=== PATIENT | female | born 1985 | race Caucasian/White ===

== ENCOUNTER 2017-03-03 18:35 | Emergency (ER) | payer OTHER ==
[2017-03-03 18:56] VITALS: BP 127/81; PULSE 78; RESP 16; TEMP 98.6; O2SAT 97
[2017-03-03] MEDS ORDERED: HYDROCODONE/APAP 5/325 TAB PO ONE (18:57)
--- NOTE | 2017-03-03 18:59 | UCPHY ---
H & P Patient Type: Established Chief Complaint Nursing Narrative: Pt. states punched tile wall aprox 1430 today. Hand swelling and numbness/tingling marko to 3rd digit. Time Seen by Provider: 03/03/17 18:54 HPI/ROS: CHIEF COMPLAINT: Right hand pain HISTORY OF PRESENT ILLNESS: Patient is a 31-year-old female who punched a tight wall at home just prior to arrival. She has swelling and pain over her 3rd MCP joint. Normal range of motion and sensation and capillary refill. She denies other injuries. REVIEW OF SYSTEMS: Constitutional: denies: chills, fever, recent illness, recent injury EENTM: denies: blurred vision, double vision, nose congestion Respiratory: denies: cough, shortness of breath Cardiac: denies: chest pain, irregular heart rate, lightheadedness, palpitations Gastrointestinal/Abdominal: denies: abdominal pain, diarrhea, nausea, vomiting, blood streaked stools Genitourinary: denies: dysuria, frequency, hematuria, pain Musculoskeletal: See HPI Skin: denies: lesions, rash, jaundice, bruising Neurological: denies: headache, numbness, paresthesia, tingling, dizziness, weakness Hematologic/Lymphatic: denies: blood clots, easy bleeding, easy bruising Immunologic/allergic: denies: HIV/AIDS, transplant EXAM: GENERAL: Well-appearing, well-nourished and in no acute distress. HEAD: Atraumatic, normocephalic. EYES: Pupils equal round and reactive to light, extraocular movements intact, sclera anicteric, conjunctiva are normal. ENT: TMs normal, nares patent, oropharynx clear without exudates. Moist mucous membranes. NECK: Normal range of motion, supple without lymphadenopathy or JVD. LUNGS: Breath sounds clear to auscultation bilaterally and equal. No wheezes rales or rhonchi. HEART: Regular rate and rhythm without murmurs, rubs or gallops. ABDOMEN: Soft, nontender, normoactive bowel sounds. No guarding, no rebound. No masses appreciated. BACK: No CVA tenderness, no spinal tenderness, step-offs or deformities EXTREMITIES: see HPI NEUROLOGICAL: Cranial nerves II through XII grossly intact. Normal speech, normal gait. 5/5 strength, normal movement in all extremities, normal sensation PSYCH: Normal mood, normal affect. SKIN: Warm, dry, normal turgor, no visible rashes or lesions. Source: Patient Exam Limitations: No limitations - Personal History LMP (Females 10-55): 8-14 Days Ago Current Tetanus Diphtheria and Acellular Pertussis (TDAP): Yes - Medical/Surgical History Hx Asthma: No Hx Chronic Respiratory Disease: No Hx Diabetes: No Hx Cardiac Disease: No Hx Renal Disease: No Hx Cirrhosis: No Hx Alcoholism: No Hx HIV/AIDS: No Hx Splenectomy or Spleen Trauma: No Other PMH: Med hx-none. Surg-oral - Family History Significant Family History: No pertinent family hx - Social History Smoking Status: Never smoked Alcohol Use: Sober Drug Use: None Constitutional: Initial Vital Signs Temperature (C) 37.0 C 03/03/17 18:43 Heart Rate 78 03/03/17 18:43 Respiratory Rate 16 03/03/17 18:43 Blood Pressure 127/81 H 03/03/17 18:43 O2 Sat (%) 97 03/03/17 18:43 O2 Delivery Mode Room Air Allergies/Adverse Reactions: No Known Allergies Allergy (Verified 03/03/17 18:51) Home Medications: Medication Instructions Recorded Bcp 03/03/17 Hydrocodone/APAP 5/325 [Fields 1 - 2 tab PO Q4H PRN #7 tab 03/03/17 5/325 (RX)] Medical Decision Making - Diagnostics Imaging Results: Imaging Impressions Hand X-Ray 03/03/17 18:57 Impression: Negative for fracture. X-ray: Hand x-ray was obtained. I viewed the images myself on the PACS system. My interpretation of the images is: [negative for acute disease ]. The radiologist interpretation is negative. ED Course/Re-evaluation: The patient is reassured by her x-rays. We discussed treatment of bruising and swelling including elevation, ice and compression. She is happy with this and declines further workup or testing at this time. Differential Diagnosis: Partial list of the Differential diagnosis considered include but were not limited to; contusion, fracture and although unlikely based on the history and physical exam, I also considered dislocation, foreign body, fight bite. I discussed these differential diagnoses and the plan with the patient as well as the usual and expected course. The patient understands that the diagnosis is provisional and that in medicine we are not always correct and that further workup is often warranted. Usual and customary warnings were given. All of the patient's questions were answered. The patient was instructed to return to the emergency department should the symptoms at all worsen or return, otherwise to followup with the physician as we discussed. - Data Points Medications Given: Discontinued Medications Hydrocodone Bitart/Acetaminophen (Fields 5/325) 1 tab PO EDNOW ONE Stop: 03/03/17 18:58 Last Admin: 03/03/17 19:25 Dose: 1 tab Departure - Departure Disposition: Home, Routine, Self-Care Clinical Impression: Contusion, hand Qualifiers: Encounter type: initial encounter Laterality: right Qualified Code(s): S60.221A - Contusion of right hand, initial encounter Condition: Fair Instructions: Hematoma (ED) Referrals: Nathaniel Portillo MD [Primary Care Provider] - As per Instructions Prescriptions: Hydrocodone/APAP 5/325 [Fields 5/325 (RX)] 1 - 2 tab PO Q4H PRN #7 tab PRN Reason: Pain, Moderate - PQRS PQRS Measurement: Not applicable
== END 2017-03-03 19:50 | disposition home or self-care (01) ==
LOC: CED 18:35
DX: S60.221A Contusion of right hand, initial encounter (principal); W22.8XXA Striking against or struck by other objects, initial encounter; Y92.009 Unspecified place in unspecified non-institutional (private) residence as the place of occurrence of the external cause
CPT/HCPCS: 73130-PO; G0463-PO

== ENCOUNTER 2017-07-20 19:39 | Emergency (ER) | payer OTHER ==
[2017-07-20 19:52] VITALS: BP 140/96; PULSE 76; RESP 16; TEMP 98.6; O2SAT 99
--- NOTE | 2017-07-20 19:54 | EDPHY ---
H & P Time Seen by Provider: 07/20/17 19:42 HPI/ROS: CHIEF COMPLAINT: Lower back and left hip pain after fall History by patient HISTORY OF PRESENT ILLNESS: 31-year-old otherwise healthy woman presents complaining of severe pain in her lower back particularly on the left side in the area of her left iliac crest after slipping and falling down stairs landing on her back. Pain is worse when she changes position or puts weight on her left buttock or leg. She denies any numbness or weakness. She took ibuprofen with minimal relief. She denies any other pain or injury. REVIEW OF SYSTEMS: As in HPI, and all other systems reviewed and are negative Smoking Status: Never smoked Physical Exam: General Appearance: Alert, uncomfortable appearing. Eyes: Pupils equal and round no pallor or injection. ENT, Mouth: Mucous membranes moist. Gastrointestinal: Abdomen is soft and nontender, no masses, bowel sounds normal. Neurological: Awake, alert and oriented x 3, no pronator drift, normal gait, no pronator drift, DTRs 2+ and equal bilaterally in knees and ankles, no pain with straight leg raise Back: Positive red abrasion and contusion over area of L1, L2, positive bony tenderness over lower lumbar spine, Pelvis: Stable, positive tenderness over left posterior iliac crest, no anterior tenderness Skin: Warm and dry, no rashes. Musculoskeletal: Neck is supple nontender. Extremities are symmetrical, full range of motion. DP pulses are 2+ and equal bilaterally, distal sensations intact Psychiatric: Patient has normal affect, there is no agitation. Constitutional: Initial Vital Signs Temperature (C) 37 C 07/20/17 19:48 Heart Rate 76 07/20/17 19:48 Respiratory Rate 16 07/20/17 19:48 Blood Pressure 140/96 H 07/20/17 19:48 O2 Sat (%) 99 07/20/17 19:48 O2 Delivery Mode Room Air Allergies/Adverse Reactions: tuberculin,PPD,multi-puncture Allergy (Verified 07/20/17 19:47) Home Medications: Medication Instructions Recorded Bcp 03/03/17 Cyclobenzaprine [Flexeril 10 MG 10 mg PO TID PRN #10 tab 07/20/17 (*)] Lidocaine 5% [Lidoderm 5% Patch 1 ea TD DAILY #30 patch 07/20/17 (*)] MDM/Departure - MDM Imaging: I viewed and interpreted images myself ED Course/Re-evaluation: 31-year-old woman presents with low back pain and tenderness after fall down the stairs. X-rays of lumbar spine and pelvis showed no evidence of acute fracture and patient is neurologically intact. I discussed the findings and conservative home measures with the patient. We will treat her with rest, ice, NSAIDs, acetaminophen and muscle relaxants. - Depart Disposition: Home, Routine, Self-Care Clinical Impression: Back contusion Qualifiers: Encounter type: initial encounter Laterality: unspecified laterality Qualified Code(s): S20.229A - Contusion of unspecified back wall of thorax, initial encounter Condition: Fair Instructions: Low Back Strain (ED) Additional Instructions: You were seen by Dr. Molly Sinclair today. I recommend ibuprofen 600 mg and if needed add acetaminophen 1000 mg 4 times daily as needed for pain. You may also try topical lidocaine patches. I also recommend ice. Return for any worsening or new concerns. Prescriptions: Cyclobenzaprine [Flexeril 10 MG (*)] 10 mg PO TID PRN #10 tab PRN Reason: back pain Lidocaine 5% [Lidoderm 5% Patch (*)] 1 ea TD DAILY #30 patch Referrals: Nathaniel Portillo MD [Primary Care Provider] - As per Instructions
[2017-07-20] MEDS ORDERED: CYCLOBENZAPRINE 10MG PREPACK#3 BTL TAKEHOME ONE ×2 (20:34→20:35)
== END 2017-07-20 20:40 | disposition home or self-care (01) ==
LOC: CED 19:39
DX: S20.229A Contusion of unspecified back wall of thorax, initial encounter (principal); W10.8XXA Fall (on) (from) other stairs and steps, initial encounter
CPT/HCPCS: 72100-PO; 72170-PO